=== PATIENT | female | born 1940 | race Caucasian/White ===

== ENCOUNTER 2017-04-20 02:01 | Inpatient (IN) ==
[2017-04-13 10:27] LABS: MANUAL DIFF NEEDED? NO
[2017-04-13 10:27] LABS: URINE MICRO REVIEW NEEDED? NO; URINE SOURCE CLEAN CATCH
[2017-04-13 11:41] LABS: BILIRUBIN URINE NEGATIVE (NEGATIVE); BLOOD URINE NEGATIVE (NEGATIVE); COLOR YELLOW; GLUCOSE URINE NEGATIVE (NEGATIVE); LEUKOCYTES URINE LARGE (NEGATIVE); NITRITE URINE NEGATIVE (NEGATIVE); PH URINE 5.5; PROTEIN URINE TRACE mg/dL (NEGATIVE); TURBIDITY URINE CLEAR (CLEAR); UR EPITHELIAL CELLS <10 /HPF (<10); URINE BACTERIA NEGATIVE /HPF; URINE RBC <10 /HPF (<10); URINE WBC TNTC /HPF (<10); UROBILINOGEN URINE NORMAL (NORMAL)
[2017-04-13 11:42] LABS: BASO% 1.1 % (0.0-0.8); EOS# 0.51 X1000 (0.0-0.7); EOS% 5.5 % (0.0-10.0); HEMATOCRIT 38.1 % (37.0-47.0); HEMOGLOBIN 12.7 g/dL (12.0-16.0); IMM GRAN# 0.03 X1000 (0.0-0.04); IMM GRAN% 0.3 % (0.0-0.5); LYMPH# 1.83 X1000 (1.2-3.4); LYMPH% 19.6 % (20.5-51.1); MCH 30.2 PG (27-31); MCHC 33.3 g/dL (33-37); MCV 90.7 FL (81-99); MONO# 0.73 X1000 (0.11-0.59); MONO% 7.8 % (1.7-9.3); MPV 10.6 FL (7.4-10.4); NEUT% 65.7 % (42.2-75.2); PLT 232 X1000 (130-400)
[2017-04-13 11:45] LABS: INR 1.04; PTT 22.6 Seconds (22.0-36.0)
[2017-04-13 12:07] LABS: CALCIUM 9.7 mg/dL (8.8-10.2); POTASSIUM 4.1 mmol/L (3.5-5.1)
--- NOTE | 2017-04-13 12:39 | EKG Report ---
Test Performed on : 04/13/2017 10:04:22 AM Test Reason : PAT Blood Pressure : / mmHG Vent. Rate : 086 BPM Atrial Rate : 086 BPM P-R Int : 140 ms QRS Dur : 064 ms QT Int : 342 ms P-R-T Axes : 042 044 055 degrees QTc Int : 409 ms Sinus rhythm. with premature supraventricular complexes. Otherwise normal ECG When compared with ECG of 10-JUN-2016 08:54, premature supraventricular complexes. are now present Confirmed by Apolinar Anderson MD ([id number]) on 04/13/2017 4:17:35 PM
[2017-04-20] MEDS ORDERED: PEPCID ONE (06:03)
[2017-04-20] MEDS ORDERED: REGLAN ONE (06:03)
[2017-04-20] MEDS ORDERED: COLACE ONE (06:03)
[2017-04-20] MEDS ORDERED: LYRICA ONE ×2 (06:03→06:05)
[2017-04-20] MEDS ORDERED: CELEBREX ONE (06:03)
[2017-04-20] MEDS ORDERED: LR 1,000 ML ONE (06:03)
[2017-04-20] MEDS ORDERED: KEFZOL 2 GM/D5W 2 GM/50 ML IVPB ONE (06:04)
[2017-04-20] MEDS ORDERED: MARCAINE 0.25% PF/EPI 1:200,000 ONE (06:24)
[2017-04-20] MEDS ORDERED: TORADOL ONE (06:24)
[2017-04-20] MEDS ORDERED: DURAMORPH ONE (06:24)
[2017-04-20] MEDS ORDERED: NEOSPORIN G.U. IRRIGANT ONE (06:25)
[2017-04-20] MEDS ORDERED: CYKLOKAPRON 1,000 MG/NS 1,000 MG/100 ML IVPB ONE (06:25)
[2017-04-20] MEDS ORDERED: EXPAREL 1.3% ONE (06:25)
[2017-04-20] MEDS ORDERED: SODIUM CHLORIDE 0.9% ONE (06:25)
[2017-04-20] MEDS ORDERED: XYLOCAINE-MPF 2% ONE (06:42)
[2017-04-20] MEDS ORDERED: QUELICIN (DOSE) ONE (06:48)
[2017-04-20] MEDS ORDERED: DIPRIVAN 1% ONE (06:49)
[2017-04-20] MEDS ORDERED: FENTANYL ONE (07:20)
[2017-04-20] MEDS ORDERED: EPHEDRINE ONE (07:48)
[2017-04-20 07:49] LABS: URINE MICRO REVIEW NEEDED? NO; URINE SOURCE CATH
[2017-04-20 07:53] LABS: BILIRUBIN URINE NEGATIVE (NEGATIVE); BLOOD URINE NEGATIVE (NEGATIVE); COLOR YELLOW; GLUCOSE URINE NEGATIVE (NEGATIVE); LEUKOCYTES URINE NEGATIVE (NEGATIVE); NITRITE URINE NEGATIVE (NEGATIVE); PH URINE 5.5; PROTEIN URINE 30 mg/dL (NEGATIVE); SP GRAVITY URINE 1.016; TURBIDITY URINE CLEAR (CLEAR); UR EPITHELIAL CELLS <10 /HPF (<10); URINE BACTERIA NEGATIVE /HPF; URINE RBC <10 /HPF (<10); URINE WBC <10 /HPF (<10); UROBILINOGEN URINE NORMAL (NORMAL)
[2017-04-20] MEDS ORDERED: ZEMURON ONE (08:14)
[2017-04-20] MEDS ORDERED: OFIRMEV 1000 MG/ISOTONIC SOLN 1,000 MG/100 ML BOTTLE ONE (08:36)
[2017-04-20] MEDS ORDERED: ZOFRAN ONE (08:36)
[2017-04-20] MEDS ORDERED: ZYLOPRIM PO SCH (09:00)
[2017-04-20] MEDS ORDERED: NEURONTIN PO SCH (09:00)
[2017-04-20] MEDS ORDERED: VANCOMYCIN ONE (09:08)
[2017-04-20] MEDS ORDERED: NS 1,000 ML ONE (10:03)
[2017-04-20] MEDS ORDERED: MORPHINE ONE ×2 (10:44→13:48)
--- NOTE | 2017-04-20 10:44 | Diag Imaging Result Doc PS360 ---
EXAM: SHOULDER 1 VIEW LEFT HISTORY: post Total shoulder TECHNIQUE: Single view COMPARISON: Chest from 07/04/2014 FINDINGS: The patient has undergone orthopedic replacement of the left shoulder since the prior exam. There is good positioning within the humeral shaft. Glenoid and humeral components are well positioned. No separation at the acromioclavicular joint. IMPRESSION: Orthopedically replaced left shoulder. Electronically signed by Kelton Barajas 04/20/2017 10:42 AM
[2017-04-20] MEDS: NS 1,000 ML IV SCH (11:32)
[2017-04-20] MEDS: ASPIRIN PO SCH (13:21)
[2017-04-20] MEDS: HUMULIN 70/30 SUBQ SCH ×2 (13:21→21:00)
[2017-04-20] MEDS: ALEVE PO SCH (13:21)
[2017-04-20] MEDS: OCUVITE LUTEIN & ZEAXANTHIN PO SCH (13:22)
[2017-04-20] MEDS: PRINIVIL PO SCH (13:22)
[2017-04-20] MEDS: ULTRAM PO SCH ×3 (13:22→16:55)
[2017-04-20] MEDS: TOPROL XL PO SCH (13:22)
[2017-04-20] MEDS: PROTONIX PO SCH ×2 (13:22→21:11)
[2017-04-20] MEDS ORDERED: CYKLOKAPRON 1,000 MG in NS 100 ML IV ONE (13:27)
[2017-04-20] MEDS ORDERED: ZOFRAN PO PRN (14:30)
[2017-04-20] MEDS ORDERED: MILK OF MAGNESIA PO PRN (14:30)
[2017-04-20] MEDS: KEFZOL 2 GM/D5W 2 GM/50 ML IVPB IV SCH ×2 (15:58→23:50)
--- NOTE | 2017-04-20 17:52 | OPERATIVE NOTE ---
PROCEDURE DATE: 04/20/2017 PREOPERATIVE DIAGNOSIS: Posttraumatic arthritis left glenohumeral joint. POSTOPERATIVE DIAGNOSIS: Posttraumatic arthritis left glenohumeral joint. PROCEDURE: Left reverse shoulder arthroplasty with DePuy Delta Xtend size 8, cemented stem, a 42+ 3 humeral cup, a 42 eccentric Glenosphere and a standard metaglene. SURGEON: Dr. Reggie Carroll 1ST SURVEYOR HYDROGRAPHIC: HARINI Kirk. 2ND SURVEYOR HYDROGRAPHIC: Gume Bustos RN. ANESTHESIA: General. IV FLUIDS: 1900 mL lactated Ringer's. ESTIMATED BLOOD LOSS: 200 mL. COMPLICATIONS: None. INDICATION: The patient is a pleasant 77-year-old female, who is status post fall a few years ago sustaining a left proximal humeral fracture. This was treated nonoperatively. She has continued with pain and comfort over the last few years and pains worsened. X-rays revealed evidence of a posttraumatic arthritis. A recommendation to proceed with left reverse shoulder arthroplasty was offered. Risks and benefits of surgery were explained, including the risks of anesthesia, , bleeding, infection, failure to relieve pain, postop stiffness, nerve injury, blood clots, and other imponderables. All questions were answered. The patient and family wished to proceed with surgery. DETAILS OF OPERATION: The patient was taken to the operating room and placed supinely on the operating table. Once adequate anesthesia was obtained, patient's was placed in semi-Emmanuel beach- chair position. The left shoulder was subsequently prepped and draped in usual sterile fashion. A standard deltopectoral incision made with a skin knife. Medial and skin envelopes were developed. Hemostasis was obtained using electrocautery. The deltopectoral interval was then developed. Retractors were then placed. After this had been performed, wrist retractors placed. The clavipectoral fascia was then elevated. Attention was then turned to the subscapularis tendon. This was then elevated and incised longitudinally and retracted. The patient did have a deformity to the head secondary to the previous proximal humeral fracture. The remaining portion of the posterior rotator cuff was released. Attention was then turned to the proximal humerus where a starting reamer was passed. Intramedullary reaming was then conducted up to a size 8. A size 8 guide stem with a proximal humeral cutting block was pinned in position. The proximal humerus was then resected. After this had been performed, a protective disk was placed. Attention was then turned to the glenoid where circumferential dissection was performed with a deep knife. A guide pin was then placed and proper positioning determined with the guide. Reaming was then conducted. The central hole was then dilated. The wound was copiously irrigated with antibiotic pulsatile lavage. A standard metaglene was then impacted in position. Three locking screws and 1 nonlocking screw were placed. The wound was copiously irrigated once again. It appeared to have good fixation. The wound was copiously irrigated once again with antibiotic pulsatile lavage. A 42 eccentric Glenosphere was then placed with the eccentricity placed inferiorly. Attention turned to the proximal humerus where intramedullary guide for the proximal reaming was then conducted. After this had been performed, a trial humeral stem with a cup was then impacted and trial reduction was obtained. Trial cup and the stem was then removed. Copious irrigation was then performed with antibiotic pulsatile lavage into the intramedullary canal. Vancomycin was mixed with cement on the back table. After this had been performed, cement was then impacted into the intramedullary canal of the proximal humerus. A size 8 Delta Xtend cemented stem was then impacted in position and 10 degrees of retroversion. Excess cement was removed with a Townsend. After cement had cured, trial cup size then placed to 42, +3 and had excellent stability. The trial cup was removed. The wound was copiously once again. A 42+ 3 humeral cup was then placed. The shoulder was reduced, carried through range of motion and had good range of motion and good stability. Exparel was placed in deep soft tissue, as well as subcutaneous tissue. The wound was copiously irrigated once again with antibiotic pulsatile lavage. 2-0 Vicryl was used to repair the subcutaneous tissue and skin franklin. Adaptic, sterile 4 x 4, ABD pad, and tape were applied to the left upper extremity, followed by a shoulder immobilizer. All counts were correct. Patient tolerated the procedure well/ she was transferred to the recovery room in stable condition. cc: Reggie Carroll MD
[2017-04-20] MEDS ORDERED: COLACE PO SCH (21:00)
[2017-04-20] MEDS: PERIDEX MT SCH (21:11)
[2017-04-20] MEDS: NEURONTIN PO SCH (21:11)
[2017-04-20] MEDS: NORCO-10 PO PRN (21:12)
[2017-04-20] MEDS: ZOCOR PO SCH (21:12)
[2017-04-20] MEDS: ZYLOPRIM PO SCH (21:12)
[2017-04-20] MEDS: MORPHINE IV PRN (23:47)
[2017-04-21] MEDS: NORCO-10 PO PRN ×4 (02:11→21:18)
[2017-04-21 05:51] LABS: HEMATOCRIT 31.4 % (37.0-47.0); HEMOGLOBIN 10.2 g/dL (12.0-16.0)
[2017-04-21 06:04] LABS: CALCIUM 8.3 mg/dL (8.8-10.2)
--- NOTE | 2017-04-21 07:00 | PROGRESS NOTE ---
DATE: 04/21/2017 SUBJECTIVE: Patient is a pleasant 77-year-old female who postoperative day #1 status post left reverse total shoulder arthroplasty. She is currently sitting in the chair and resting comfortably. PHYSICAL EXAM: Patient's dressing is intact. She has good manager supply chain planning strength. She is neurovascularly intact distally. Able flex her fingers. LABORATORY DATA: Her hemoglobin is 10.2, hematocrit is 31.4. IMPRESSION: Postoperative day #1, status post left reverse total shoulder arthroplasty. PLAN: At this point, we will change her dressing, discontinue her drain, and Hep-Lock her IV. We will also proceed with physical therapy with passive range of motion of the left shoulder. It was felt the patient benefit from inpatient rehabilitation. We will consult Break Out Man for discharge planning. cc: Reggie Carroll MD
[2017-04-21] MEDS: TOPROL XL PO SCH (08:20)
[2017-04-21] MEDS: PROTONIX PO SCH ×2 (08:20→21:17)
[2017-04-21] MEDS: ASPIRIN PO SCH (08:20)
[2017-04-21] MEDS: ALEVE PO SCH (08:21)
[2017-04-21] MEDS: ULTRAM PO SCH ×3 (08:21→17:32)
[2017-04-21] MEDS: PRINIVIL PO SCH (08:21)
[2017-04-21] MEDS: OCUVITE LUTEIN & ZEAXANTHIN PO SCH (08:21)
[2017-04-21] MEDS: PERIDEX MT SCH ×2 (08:22→21:19)
[2017-04-21] MEDS ORDERED: INSULIN PEN NEEDLES ONE (09:11)
[2017-04-21] MEDS: HUMULIN 70/30 SUBQ SCH ×2 (09:20→21:19)
[2017-04-21] MEDS: NS 1,000 ML IV SCH (14:09)
[2017-04-21] MEDS: ZOCOR PO SCH (21:18)
[2017-04-21] MEDS: NEURONTIN PO SCH (21:18)
[2017-04-21] MEDS: ZYLOPRIM PO SCH (21:18)
[2017-04-22] MEDS: NORCO-10 PO PRN ×4 (02:23→21:16)
[2017-04-22] MEDS: MORPHINE IV PRN (03:29)
[2017-04-22 05:38] LABS: HEMATOCRIT 29.9 % (37.0-47.0); HEMOGLOBIN 9.8 g/dL (12.0-16.0)
--- NOTE | 2017-04-22 06:40 | PROGRESS NOTE ---
DATE: 04/22/2017 SUBJECTIVE: Patient is a pleasant 77-year-old female who is 2 days status post left reversal total shoulder arthroplasty. The patient did experience some expected discomfort through the night. OBJECTIVE: On physical exam, patient's left upper extremity wound looks good. There are no signs or symptoms of infection. She has expected swelling. She is able to flex down her fingers. She is neurovascularly intact distally. LABORATORY DATA: Her hemoglobin is 9.8 and hematocrit is 29.9. IMPRESSION: 1. Postoperative day #2, status post left reverse total shoulder arthroplasty. 2. Acute blood loss anemia. PLAN: At this point, the patient will continue progressing with physical therapy. She is asymptomatic for acute blood loss anemia. Astronaut Mission Specialist has been consulted. We will plan on discharging to rehab tomorrow. cc: Reggie Carroll MD
--- NOTE | 2017-04-22 07:01 | DISCHARGE SUMMARY ---
ADMISSION DATE: 04/20/2017 DISCHARGE DATE: 04/23/2017 ADMITTING DIAGNOSIS: Posttraumatic arthritis, left glenohumeral joint. POSTOPERATIVE DIAGNOSIS: Posttraumatic arthritis, left glenohumeral joint. PROCEDURE: 1. Left reverse total shoulder arthroplasty. 2. Acute blood loss anemia. BRIEF HISTORY: The patient is a pleasant 77-year-old female, who is status post fall a few years ago, sustaining a left proximal humeral fracture. She was treated nonoperatively. The patient has continued with pain and worsening discomfort over last few years. X-rays revealed degenerative changes and some posttraumatic arthritis. Given the patient's findings, recommendation to proceed with left reverse total shoulder arthroplasty was offered. Risks and benefits of surgery were explained. All questions were answered. The patient's family wished to proceed with surgery. HOSPITAL COURSE AND TREATMENT: The patient was admitted to the hospital and underwent left reverse total shoulder arthroplasty. She tolerated the procedure well. She had an uneventful postoperative course. By postoperative day #2, her hemoglobin and hematocrit stabilized to 9.8 and 29.9, and she was asymptomatic. It was felt the patient would benefit from inpatient rehabilitation. She was agreeable to this. Prior to discharge, the patient is afebrile, tolerating a regular diet. The wound looked good. There were no signs or symptoms of infection. She was progressing with physical therapy. DISCHARGE MEDICATIONS: 1. [place] 10 mg 1-2 p.o. q.4 hours p.r.n. pain. 2. For remaining medications, please see medication list. DISCHARGE INSTRUCTIONS: 1. Patient will be discharged from inpatient rehabilitation. 2. Consult Physical Therapy for gait training and passive range of motion exercises of the left shoulder, as well as pendulum exercises and active and passive range of motion of the left elbow, wrist, and fingers. 3. Discontinue sutures in 10 days. 4. Follow up in the office in 3 weeks. cc: Reggie Carroll MD
[2017-04-22] MEDS: ULTRAM PO SCH ×3 (09:03→18:07)
[2017-04-22] MEDS: PROTONIX PO SCH ×2 (09:10→21:17)
[2017-04-22] MEDS: PRINIVIL PO SCH ×2 (09:10→09:13)
[2017-04-22] MEDS: ALEVE PO SCH (09:10)
[2017-04-22] MEDS: OCUVITE LUTEIN & ZEAXANTHIN PO SCH (09:10)
[2017-04-22] MEDS: ASPIRIN PO SCH (09:10)
[2017-04-22] MEDS: TOPROL XL PO SCH ×2 (09:10→09:14)
[2017-04-22] MEDS: PERIDEX MT SCH ×2 (09:10→21:17)
[2017-04-22] MEDS: HUMULIN 70/30 SUBQ SCH ×2 (09:11→21:18)
[2017-04-22] MEDS: NEURONTIN PO SCH (21:17)
[2017-04-22] MEDS: ZOCOR PO SCH (21:17)
[2017-04-22] MEDS: ZYLOPRIM PO SCH (21:17)
[2017-04-23 05:32] LABS: HEMATOCRIT 29.4 % (37.0-47.0); HEMOGLOBIN 9.5 g/dL (12.0-16.0)
[2017-04-23] MEDS: PERIDEX MT SCH (09:12)
[2017-04-23] MEDS: ASPIRIN PO SCH (09:12)
[2017-04-23] MEDS: TOPROL XL PO SCH (09:12)
[2017-04-23] MEDS: PROTONIX PO SCH (09:12)
[2017-04-23] MEDS: ALEVE PO SCH (09:12)
[2017-04-23] MEDS: ULTRAM PO SCH (09:13)
[2017-04-23] MEDS: HUMULIN 70/30 SUBQ SCH (09:13)
[2017-04-23] MEDS: OCUVITE LUTEIN & ZEAXANTHIN PO SCH (09:14)
[2017-04-23] MEDS: PRINIVIL PO SCH (09:14)
[2017-04-23 11:34] VITALS: BP 108/76
== END 2017-04-23 12:09 ==
LOC: SURHOLD 02:01 → 4N 07:28
PROVIDERS: ADMIT Orthopaedic Surgery Adult Reconstructive Orthopaedic Surgery; ATTEND Orthopaedic Surgery Adult Reconstructive Orthopaedic Surgery

== ENCOUNTER 2019-01-31 09:42 | Inpatient (IN) ==
--- NOTE | 2019-01-23 10:42 | EKG Report ---
Test Performed on : 01/23/2019 10:23:13 AM Test Reason : PAT Blood Pressure : / mmHG Vent. Rate : 072 BPM Atrial Rate : 072 BPM P-R Int : 114 ms QRS Dur : 070 ms QT Int : 360 ms P-R-T Axes : 037 019 050 degrees QTc Int : 394 ms Normal sinus rhythm. Nonspecific ST abnormality Abnormal ECG When compared with ECG of 13-APR-2017 10:04, premature supraventricular complexes. are no longer present Confirmed by Dominik HERNANDEZ, Loc Mclaughlin ([id number]) on 01/24/2019 8:20:52 AM
[2019-01-23 11:19] LABS: URINE SOURCE CLEAN CATCH
[2019-01-23 11:37] LABS: BASO# 0.08 X1000 (0.0-0.2); BASO% 0.8 % (0.0-0.8); EOS# 0.17 X1000 (0.0-0.7); EOS% 1.8 % (0.0-10.0); HEMATOCRIT 41.9 % (37.0-47.0); HEMOGLOBIN 14.5 g/dL (12.0-16.0); IMM GRAN# 0.02 X1000 (0.0-0.04); IMM GRAN% 0.2 % (0.0-0.5); LYMPH# 1.81 X1000 (1.2-3.4); MCH 31.7 PG (27-31); MCHC 34.6 g/dL (33-37); MCV 91.7 FL (81-99); MONO# 0.71 X1000 (0.11-0.59); MONO% 7.4 % (1.7-9.3); MPV 9.4 FL (7.4-10.4); NEUT# 6.76 X1000 (1.4-6.5); NEUT% 70.8 % (42.2-75.2); PLT 214 X1000 (130-400); RBC 4.57 XMIL (4.2-5.4); WBC 9.55 X1000 (4.8-10.8)
[2019-01-23 11:39] LABS: BILIRUBIN URINE NEGATIVE (NEGATIVE); BLOOD URINE SMALL (NEGATIVE); COLOR YELLOW; GLUCOSE URINE NEGATIVE (NEGATIVE); KETONE URINE NEGATIVE (NEGATIVE); LEUKOCYTES URINE LARGE (NEGATIVE); NITRITE URINE POSITIVE (NEGATIVE); PH URINE 5.5; PROTEIN URINE 50 mg/dL (NEGATIVE); TURBIDITY URINE HAZY (CLEAR); UROBILINOGEN URINE NORMAL (NORMAL)
[2019-01-23 11:40] LABS: UR EPITHELIAL CELLS <10 /HPF (<10); URINE BACTERIA 4+ /HPF; URINE RBC <10 /HPF (<10); URINE WBC TNTC /HPF (<10)
[2019-01-23 11:43] LABS: INR 0.98; PROTIME 13.8 Seconds (11.0-16.0)
[2019-01-23 12:05] LABS: CALCIUM 10.2 mg/dL (8.8-10.2); CREATININE 1.1 mg/dL (0.5-0.9); POTASSIUM 4.8 mmol/L (3.5-5.1)
[2019-01-31] MEDS ORDERED: COLACE ONE (10:34)
[2019-01-31] MEDS ORDERED: KEFZOL 1 GM/D5W 2 GM/100 ML IVPB ONE (10:35)
[2019-01-31] MEDS ORDERED: LYRICA ONE (10:35)
[2019-01-31] MEDS ORDERED: LR 1,000 ML ONE (10:35)
[2019-01-31] MEDS ORDERED: CELEBREX ONE (10:35)
[2019-01-31] MEDS ORDERED: REGLAN ONE (10:35)
[2019-01-31] MEDS ORDERED: PEPCID ONE (10:35)
[2019-01-31] MEDS ORDERED: VANCOMYCIN ONE (13:17)
[2019-01-31] MEDS ORDERED: NEOSPORIN G.U. IRRIGANT ONE (13:17)
[2019-01-31] MEDS ORDERED: EXPAREL 1.3% ONE (13:17)
[2019-01-31] MEDS ORDERED: SODIUM CHLORIDE 0.9% ONE (13:17)
[2019-01-31] MEDS ORDERED: TORADOL ONE (13:17)
[2019-01-31] MEDS ORDERED: DURAMORPH ONE (13:17)
[2019-01-31] MEDS ORDERED: MARCAINE 0.25% PF ONE (13:25)
[2019-01-31] MEDS ORDERED: CYKLOKAPRON 1,000 MG/NS 1,000 MG/100 ML IVPB ONE ×2 (13:25)
[2019-01-31] MEDS ORDERED: ZOFRAN ONE (13:40)
[2019-01-31] MEDS ORDERED: ROBINUL ONE (13:40)
[2019-01-31] MEDS ORDERED: DECADRON ONE ×2 (13:40→13:49)
[2019-01-31] MEDS ORDERED: XYLOCAINE-MPF 2% ONE (13:40)
[2019-01-31] MEDS ORDERED: FENTANYL ONE (13:41)
[2019-01-31] MEDS ORDERED: DIPRIVAN 1% ONE ×2 (13:41→16:24)
[2019-01-31] MEDS ORDERED: OFIRMEV 1000 MG/ISOTONIC SOLN 1,000 MG/100 ML BOTTLE ONE (13:47)
[2019-01-31 15:02] LABS: URINE SOURCE CATH
[2019-01-31 15:05] LABS: BILIRUBIN URINE NEGATIVE (NEGATIVE); BLOOD URINE TRACE (NEGATIVE); COLOR YELLOW; GLUCOSE URINE NEGATIVE (NEGATIVE); KETONE URINE NEGATIVE (NEGATIVE); LEUKOCYTES URINE LARGE (NEGATIVE); NITRITE URINE NEGATIVE (NEGATIVE); PH URINE 5.5; PROTEIN URINE 50 mg/dL (NEGATIVE); SP GRAVITY URINE 1.001; TURBIDITY URINE HAZY (CLEAR); UR EPITHELIAL CELLS <10 /HPF (<10); URINE BACTERIA 4+ /HPF; URINE RBC <10 /HPF (<10); URINE WBC TNTC /HPF (<10); UROBILINOGEN URINE NORMAL (NORMAL)
[2019-01-31] MEDS ORDERED: NS 1,000 ML ONE (17:19)
--- NOTE | 2019-01-31 17:56 | Diag Imaging Result Doc PS360 ---
EXAM: KNEE 1-2 VIEWS-RIGHT - 01/31/2019 HISTORY: right TKA TECHNIQUE: AP and lateral right knee four views COMPARISON: 12/03/2018 FINDINGS: There is been interval placement of a new right total knee prosthesis. Alignment appears to be satisfactory. There is mild deformity of the medial cortical margin of the distal most shaft of the right femur. This may be long-standing such as from old injury, although acute fracture cannot be entirely excluded. There are no other complications identified. IMPRESSION: Right total knee prosthesis in satisfactory alignment. Mild deformity of the medial cortical margin of distal most shaft of right femur. This may be long-standing, such as from old injury. Correlation with clinical evaluation is recommended. Electronically signed by Bridger Ortiz 01/31/2019 5:53 PM
[2019-01-31] MEDS ORDERED: MORPHINE IV PRN ×3 (18:30)
[2019-01-31] MEDS ORDERED: ZOFRAN PO PRN (18:30)
[2019-01-31] MEDS: NS 1,000 ML IV SCH (18:46)
--- NOTE | 2019-01-31 19:57 | OPERATIVE NOTE ---
PROCEDURE DATE: 01/31/2019 PREOPERATIVE DIAGNOSIS: Failed right total knee arthroplasty. POSTOPERATIVE DIAGNOSIS: Failed right total knee arthroplasty. PROCEDURE: Revision of right total knee arthroplasty with DePuy Sigma, size 2.5 femur with a 31 mm universal femoral sleeve, a 75 x 12 universal fluted stem, and a size 2 tibial tray with a 29 mm metaphyseal sleeve, and a 75 x 10 mm universal fluted stem, and a size 15 mm rotating platform tibial insert. SURGEON: Reggie Carroll MD. ENVIRONMENTAL JOURNALIST: RAINER Wray. SECOND INVENTORY ADMINISTRATOR: Gume Bustos RN. ANESTHESIA: Spinal. IV FLUIDS: 800 mL lactated Ringer's. ESTIMATED BLOOD LOSS: 275 mL. TOURNIQUET TIME: 2 hours at 300 mmHg. DRAINS: One Hemovac drain was placed; was not sewn in. COMPLICATIONS: Stable intraoperative distal femur fracture. INDICATION: The patient is a pleasant 78-year-old female who is status post right total knee arthroplasty approximately 10 or 12 years ago. Patient has had worsening pain and discomfort in the last year or so, and x-rays revealed loosening of the femoral component. She underwent preoperative evaluation and was negative for infection. Given the patient's findings, recommendation to proceed with revision arthroplasty was offered. Risks and benefits of surgery were explained, including the risks of anesthesia, , bleeding, infection, failure to relieve pain, postoperative stiffness, nerve injury, blood clots, and other imponderables. All questions were answered. Patient and family wished to proceed with surgery. DETAILS OF OPERATION: The patient was taken to the operating room and placed supine on the operating table. Once adequate anesthesia was obtained, the patient's right lower extremity was subsequently prepped and draped in the usual sterile fashion. Esmarch was used to exsanguinate the right lower extremity. Tourniquet was inflated to 300 mmHg. A standard anterior incision was made through the previous surgical incision. Medial and lateral skin envelopes were developed. Standard medial parapatellar arthrotomy was then performed. Retractors were then placed. Inspection of the femoral component revealed gross loosening and was easily removed. The tibial insert was then removed. An osteotome was used to remove the tibial component. Patient was noted to have significant fragile bone and had some bone loss in the posterior aspect of the proximal tibia with removal of the tibial component. After adequate removal had been conducted, the cement plug from the intramedullary canal was removed. After this had been performed, a starting reamer was then passed in the tibia as well as the distal femur. It had good purchase with a 10 mm on the tibial side, and it reamed up to 12 mm on the femoral side. After that was performed, over- reaming was conducted proximally on the tibia and distal femur. Broaching was then performed to 29 mm on the tibial side and had good fit. It was countersunk and resected. This was then removed. A 2 mm with a 75 x 29 mm capsule sleeve, and a 75 x 10 mm stem was then impacted on the tibial side. It appeared to be a good fit. Attention was then turned to the distal femur where it was again over-reamed. Broaching was then conducted up to size 31 mm. The patient was noted to have a split and stable fracture of the femoral component in the posterior aspect at this point. After this had been performed, the intramedullary guide was then placed in position in the distal femur. The broach remained in position. The stem was then placed on the broach. A distal femoral cutting block was then pinned in position. Distal femoral cut was then performed. Given the patient's significant bone loss in the lateral femoral condyle, I was unable to obtain any resection. A standard resection was performed on the medial side. After this was performed, a chamfer cutting block was pinned in position and was determined along the epicondylar access, and also rotation was set with the knee in 90 degrees of flexion with a spacer block. It was pinned in position. Anterior, posterior, and chamfer cuts were then made. A box cutting guide was then placed. The femoral construct was then constructed. Patient was noted to have propagation of the fracture more proximally; however, after the trialing components, it was deemed to be stable. C- arm visualization was used to confirm there was no further propagation proximally. The stem was extended proximally to the most proximal portion of the metaphyseal sleeve, and had the stem well above the superior portion of the fracture. The knee was carried through a range of motion and there appeared to be stable fracture. After this was performed,components were then removed. Copious irrigation was performed with antibiotic pulsatile lavage while the vancomycin was mixed with cement on the back table. The components were assembled on the back table. Attention was then turned to the proximal tibia where cement was placed on the superior aspect of the tibia. This was followed by the tibial component construct and impacted in position. After this had been performed, cement was placed on the distal portion of the femur and the femoral construct was impacted in position. The trial tibial component was then placed in full extension. Axial loading was maintained while cement cured. The fracture site was palpated. After cement had cured, the knee was then carried through gentle range of motion. The patient had significant tightness along the quadriceps and had flexion to approximately 95 to 100 degrees. This appeared to be stable with a 15 mm. With range of motion, the fracture was stable. The trial tibial insert was then removed. Exparel had been placed in the deep soft tissue, as well as the subcutaneous tissue while cement was curing. While exchanging the tibial insert, Exparel was placed in the deep posterior capsule. The wound was copiously irrigated with antibiotic pulsatile lavage. A size 15 mm rotating platform tibial insert was then placed using good range of motion, and had good stability and range of motion, stable fracture. The patient had a small stable split in the most proximal aspect of the tibia anteriorly. A 1/8 Hemovac drain was placed and was not sewn in. Copious irrigation was then performed once again with antibiotic pulsatile lavage. A #1 Vicryl suture was used to repair the arthrotomy followed by 2-0 Vicryl to repair the subcutaneous tissue and skin franklin. Adaptic, sterile 4 x 4's, Webril, cryo unit, Cale wrap were applied to the right lower extremity. Patient tolerated this procedure well and transferred to the recovery room in stable condition. cc: Reggie Carroll MD MTDD
[2019-01-31] MEDS: NORCO-10 PO PRN (22:00)
[2019-01-31] MEDS: KEFZOL 1 GM/D5W 1 GM/50 ML IVPB IV SCH (22:00)
[2019-02-01] MEDS: NORCO-10 PO PRN (01:49)
[2019-02-01] MEDS: KEFZOL 1 GM/D5W 1 GM/50 ML IVPB IV SCH (06:03)
[2019-02-01] MEDS: XARELTO PO SCH (06:05)
[2019-02-01 06:13] LABS: HEMATOCRIT 36.2 % (37.0-47.0); HEMOGLOBIN 12.4 g/dL (12.0-16.0)
[2019-02-01 06:27] LABS: CALCIUM 8.7 mg/dL (8.8-10.2); CREATININE 1.2 mg/dL (0.5-0.9); POTASSIUM 4.8 mmol/L (3.5-5.1)
[2019-02-01] MEDS ORDERED: INSULIN PEN NEEDLES ONE (08:55)
[2019-02-01] MEDS ORDERED: ZYLOPRIM PO SCH (09:00)
--- NOTE | 2019-02-01 11:33 | ORTHOPAEDICS PROGRESS NOTE ---
DATE: 02/01/2019 SUBJECTIVE: The patient is a 78-year-old female who is 1 day status post revision right total knee arthroplasty. She is currently resting comfortably. The patient was noted to have a stable distal femur fracture intraoperatively. She states that the Hollister 10 mg seems to make her somewhat hyper, and is requesting to decrease to Hollister 7.5 mg. PHYSICAL EXAMINATION: The patient's right lower extremity with dressing is intact. Calf is soft. She has active dorsiflexion and plantar flexion. LABORATORY DATA: Her hemoglobin is 12.4, hematocrit 36.2. IMPRESSION: Postoperative day #1, status post revision right total knee arthroplasty with stable intraoperative distal femur fracture. PLAN: At this point, will maintain the patient on nonweightbearing right lower extremity. Will begin mobilization. Will consult New Media Strategist for discharge planning for inpatient rehabilitation. cc: Reggie Carroll MD
[2019-02-01] MEDS: HUMULIN 70/30 SUBQ SCH (11:48)
[2019-02-01] MEDS: OCUVITE LUTEIN & ZEAXANTHIN PO SCH (11:49)
[2019-02-01] MEDS: COLACE PO SCH ×2 (11:49→23:58)
[2019-02-01] MEDS: TOPROL XL PO SCH (11:49)
[2019-02-01] MEDS: PRINIVIL PO SCH (11:49)
[2019-02-01] MEDS: PEPCID PO SCH ×3 (11:50→23:57)
[2019-02-01] MEDS: PERIDEX MT SCH ×2 (11:50→23:57)
[2019-02-01] MEDS: ULTRAM PO SCH ×3 (11:50→18:49)
[2019-02-01] MEDS: NEURONTIN PO SCH (11:51)
--- NOTE | 2019-02-01 13:53 | Diag Imaging Result Doc PS360 ---
EXAM: CHEST-1 VIEW INDICATION: REHAB TECHNIQUE: One view COMPARISON: 01/11/2018 FINDINGS: The lungs are grossly clear. There is no discrete pleural fluid collection or pneumothorax. The cardiomediastinal silhouette and central vasculature are grossly unremarkable. IMPRESSION: No evidence of acute pathology by plain radiograph. Electronically signed by Rolando Rashid 02/01/2019 1:51 PM
[2019-02-01] MEDS: NORCO-7.5 PO PRN ×3 (13:57→23:56)
[2019-02-01] MEDS: NS 1,000 ML IV SCH (16:11)
[2019-02-01] MEDS ORDERED: HUMULIN 70/30 SUBQ SCH (21:00)
[2019-02-01] MEDS ORDERED: ZOCOR PO SCH (21:00)
[2019-02-02] MEDS: ULTRAM PO SCH ×3 (02:21→15:43)
[2019-02-02] MEDS: XARELTO PO SCH (06:11)
[2019-02-02 06:31] LABS: HEMOGLOBIN 11.9 g/dL (12.0-16.0)
[2019-02-02] MEDS ORDERED: PEPCID PO SCH (09:00)
[2019-02-02] MEDS ORDERED: SEPTRA DS PO SCH (09:00)
[2019-02-02] MEDS: PERIDEX MT SCH (10:20)
[2019-02-02] MEDS: PRINIVIL PO SCH (10:21)
[2019-02-02] MEDS: COLACE PO SCH (10:21)
[2019-02-02] MEDS: OCUVITE LUTEIN & ZEAXANTHIN PO SCH (10:21)
[2019-02-02] MEDS: TOPROL XL PO SCH (10:21)
[2019-02-02] MEDS: HUMULIN 70/30 SUBQ SCH (10:26)
--- NOTE | 2019-02-02 11:01 | ORTHOPAEDICS PROGRESS NOTE ---
DATE: 03/05/2019 SUBJECTIVE: Patient is a 79-year-old female who was one day status post revision right total knee arthroplasty and sustained a stable distal femoral fracture. She is currently sitting in a chair resting comfortably. OBJECTIVE: The patient's vital signs are stable. She has her right lower extremity wound looks good. There is no signs or symptoms of infection. Calf is soft. She has active dorsiflexion and plantar flexion. She is able to perform a straight leg raise. IMPRESSION: 1. Postoperative day #1 status post revision right total knee arthroplasty with stable distal femur fracture. 2. Urinary tract infection on admission. PLAN: At this point, will maintain the patient on nonweightbearing right lower extremity. Discharge planning for inpatient rehabilitation and we anticipate discharge tomorrow if bed is available. Patient's microbiology on the initial urine obtained the morning of her admission is growing gram-negative rods. We will place her on antibiotic for coverage. cc: Reggie Carroll MD
--- NOTE | 2019-02-02 11:05 | DISCHARGE SUMMARY ---
ADMISSION DATE: 01/31/2019 DISCHARGE DATE: 02/02/2019 ADMITTING DIAGNOSES: 1. Failed right total knee arthroplasty. 2. Urinary tract infection. DISCHARGE DIAGNOSES: 1. Failed right total knee arthroplasty. 2. Urinary tract infection 3. Status post revision right total knee arthroplasty with a stable distal femoral fracture. BRIEF HISTORY: The patient is a pleasant 79-year-old female who has had a chronic history who is status post right total knee arthroplasty in 2007. The patient has developed increased discomfort last year or so and has worsened. X-rays revealed evidence of loosening of the femoral component. Underwent preop evaluation, was negative for infection. Recommendation to proceed with revision arthroplasty with revision right total knee arthroplasty. Risks and benefits of surgery explained including the risks of anesthesia, , bleeding, infection, failure to relieve pain, Postoperative stiffness, nerve injury, blood clots, and other imponderables. All questions were answered. The patient wished to proceed with surgery. HOSPITAL COURSE AND TREATMENT: Patient admitted to the hospital and underwent revision right total knee arthroplasty. Patient tolerated the procedure well. Patient was noted to have some fragile osteoporotic bone and did sustain a stable distal femoral, which was noted intraoperatively. She had an uneventful postoperative course. By postoperative day #2, her hemoglobin was 11.9, hematocrit is 35.0. The patient was placed on restrictive weightbearing for a distal femoral fracture and was slow to mobilize and slow to mobilize with physical therapy. Patient had a urine culture which was obtained on her admission which did reveal E. coli which is sensitive to Bactrim and will be Bactrim for 10 days. It was felt she would benefit from inpatient rehabilitation. Prior to discharge, the patient is afebrile, tolerating a regular diet. Wound looked good. There are no signs or symptoms of infection. Her pain was well controlled with p.o. medication. DISCHARGE MEDICATIONS: 1. [place] 7.5 mg 1 p.o. daily 2 6 hours p.r.n. pain. 2. For remaining medications, please see medication list. Times. 3. Xarelto 10 mg 1 p.o. daily p.o.. 4. For remaining medications, see please see medication list. DISCHARGE INSTRUCTIONS: 1. Patient will be discharged for inpatient rehabilitation. 2. Consult Physical Therapy. 3. The patient will be nonweightbearing right lower extremity. 4. Discontinue franklin some 10 days. 5. Follow up in the office in 3 weeks. Eris#: [id number] cc: Reggie Carroll MD MTDD
[2019-02-02 11:46] VITALS: BP 149/57
[2019-02-02] MEDS: NEURONTIN PO SCH (12:09)
[2019-02-02] MEDS ORDERED: ZYLOPRIM PO SCH (21:00)
== END 2019-02-02 15:45 | DRG 467 ==
LOC: 4N 09:42 → PAT 09:42
PROVIDERS: ADMIT Orthopaedic Surgery Adult Reconstructive Orthopaedic Surgery; ATTEND Orthopaedic Surgery Adult Reconstructive Orthopaedic Surgery
CPT/HCPCS: 71010; 71045; 73560; 76000; 80048; 81001; 82948; 85014; 85018; 85025; 85610; 85730; 86850; 86900; 86901; 87070; 87075; 87077; 87088; 87186; 87205; 93005; 93010; 94761; 94799; 97110; 97162; 97530; A9270; C9290; J0131; J0690; J1100; J1885; J2270; J2274; J2275; J2405; J3010; J3370; J7030; J7120; Q9974; S0020; XXXXX

== ENCOUNTER 2019-02-28 11:11 | Observation (INO) ==
[2019-02-28] MEDS ORDERED: REGLAN ONE (11:51)
[2019-02-28] MEDS ORDERED: KEFZOL 1 GM/D5W 2 GM/100 ML IVPB ONE (11:51)
[2019-02-28] MEDS ORDERED: LR 1,000 ML ONE (11:51)
[2019-02-28] MEDS ORDERED: PEPCID ONE (11:51)
[2019-02-28] MEDS ORDERED: DIPRIVAN 1% ONE (12:57)
[2019-02-28] MEDS ORDERED: MORPHINE ONE (12:58)
[2019-02-28] MEDS ORDERED: SODIUM CHLORIDE 0.9% 10 ML ONE ×2 (12:59→15:58)
[2019-02-28] MEDS ORDERED: XYLOCAINE-MPF 2% ONE (12:59)
[2019-02-28] MEDS ORDERED: EPHEDRINE ONE (13:31)
[2019-02-28] MEDS ORDERED: ZOFRAN ONE (13:47)
[2019-02-28] MEDS: DILAUDID ONE ×4 (15:11→15:26)
[2019-02-28] MEDS ORDERED: NS 1,000 ML ONE (15:41)
[2019-02-28] MEDS ORDERED: NORCO-7.5 ONE (15:53)
[2019-02-28] MEDS ORDERED: TORADOL ONE (15:58)
[2019-02-28] MEDS ORDERED: PHENERGAN ONE (15:58)
[2019-02-28] MEDS ORDERED: ZOFRAN IV PRN (17:05)
[2019-02-28] MEDS ORDERED: MILK OF MAGNESIA PO PRN (17:05)
[2019-02-28] MEDS ORDERED: MORPHINE IV PRN (17:05)
[2019-02-28] MEDS ORDERED: HALDOL IV PRN (17:15)
[2019-02-28] MEDS: NS 1,000 ML IV SCH (17:44)
[2019-02-28] MEDS ORDERED: ULTRAM PO PRN (17:57)
--- NOTE | 2019-02-28 18:13 | OPERATIVE NOTE ---
PROCEDURE DATE: 02/28/2019 POSTOPERATIVE DIAGNOSIS: Right patella tendon avulsion status post revision total knee arthroplasty. POSTOPERATIVE DIAGNOSIS: Right patella tendon avulsion status post revision total knee arthroplasty. PROCEDURE: Repair of right patella tendon. SURGEON: Reggie Carroll MD. UNION LABORER: RAINER Santo. SECOND CORPORATE COMPLIANCE DIRECTOR: Gume Bustos RN. ANESTHESIA: General. IV FLUIDS: 700 mL lactated Ringer's. ESTIMATED BLOOD LOSS: 20 mL. TOURNIQUET TIME: 65 minutes at 300 mmHg. COMPLICATIONS: None. INDICATION: The patient is a pleasant, 79-year-old female who is status post revision right total knee arthroplasty approximately 5 weeks ago. Approximately 2 weeks status post revision arthroplasty the patient sustained a fall. She felt pain, discomfort, and increased swelling. Upon follow-up visit, patient's swelling was much improved and the patient was unable to fully extend her knee, lacked approximately 40 to 45 degrees of extension, and has had findings consistent with patella tendon. Given patient's findings, recommendation to proceed with repair of right patella tendon was offered. Risks and benefits of surgery were explained, including the risks of anesthesia, , bleeding, infection, failure to relieve pain, postoperative stiffness, nerve injury, blood clots, and other imponderables. All questions answered and patient and family wished to proceed with surgery. DETAILS OF OPERATION: The patient was taken to the operating room and placed supine on the operating table. Once adequate anesthesia was obtained, patient's right lower extremity was subsequently prepped and draped in usual sterile fashion. An Esmarch was used to exsanguinate the right lower extremity and the tourniquet was inflated to 300 mmHg. A standard anterior incision was made through the previous surgical incision. The incision was carried down through subcutaneous tissue. Identification of the patella tendon was then identified and it was avulsed off the tibial tubercle. Intraoperative cultures were obtained. There were no obvious signs of infection. After this had been performed, pulsatile lavage was used to irrigate the joint and the wound. After this had been performed, attention was then turned the tibial tubercle. A [employer] 1.8 Q-FIX anchor was placed x3 starting medially and working laterally. After this had been performed, 1 limb from each Q-FIX anchor was passed up and down the patella tendon in a Krackow locking fashion. The remaining limb on each anchor was placed in the edge of the tendon distally. They were then tied sequentially. There appeared be good repair. The was an oversewn on the medial retinaculum with #1 Vicryl. Gentle flexion was performed and appeared to be good repair. After this was performed, the wound was copiously irrigated once again. A 2-0 Vicryl then used for subcutaneous tissue, followed by skin franklin. Quarter percent Marcaine with epinephrine was injected locally. Adaptic, 4x4s, Webril, Cale wrap, and a hinged knee brace locked in full extension was placed. The patient tolerated the procedure well, no complications, transferred to the recovery room in stable condition. cc: Reggie Carroll MD
[2019-02-28] MEDS: NORCO-7.5 PO PRN (18:51)
[2019-02-28] MEDS ORDERED: HUMULIN 70/30 SUBQ SCH ×2 (21:00→22:42)
[2019-02-28] MEDS: KEFZOL 1 GM/D5W 1 GM/50 ML IVPB IV SCH (21:53)
[2019-02-28] MEDS: ZYLOPRIM PO SCH (21:54)
[2019-02-28] MEDS: NEURONTIN PO SCH (21:54)
[2019-02-28] MEDS: PEPCID PO SCH (21:54)
[2019-02-28] MEDS: TYLENOL PO SCH (21:55)
[2019-02-28] MEDS: ZOCOR PO SCH (21:55)
[2019-03-01] MEDS ORDERED: ULTRAM PO PRN (00:17)
[2019-03-01] MEDS: COLACE PO SCH ×5 (00:26→21:46)
[2019-03-01 01:25] LABS: URINE SOURCE CLEAN CATCH
[2019-03-01 01:31] LABS: BILIRUBIN URINE NEGATIVE (NEGATIVE); BLOOD URINE SMALL (NEGATIVE); COLOR ORANGE; GLUCOSE URINE NEGATIVE (NEGATIVE); KETONE URINE NEGATIVE (NEGATIVE); LEUKOCYTES URINE LARGE (NEGATIVE); NITRITE URINE POSITIVE (NEGATIVE); PROTEIN URINE 30 mg/dL (NEGATIVE); SP GRAVITY URINE 1.006; TURBIDITY URINE TURBID (CLEAR); UROBILINOGEN URINE NORMAL (NORMAL)
[2019-03-01 01:40] LABS: UR EPITHELIAL CELLS <10 /HPF (<10); URINE BACTERIA NEGATIVE /HPF; URINE RBC <10 /HPF (<10); URINE WBC TNTC /HPF (<10)
[2019-03-01 01:42] LABS: URINE CASTS NONE SEEN; URINE CRYSTALS NONE SEEN; URINE SMALL ROUND CELLS NONE SEEN; URINE YEAST NONE SEEN
[2019-03-01] MEDS: KEFZOL 1 GM/D5W 1 GM/50 ML IVPB IV SCH (05:30)
[2019-03-01] MEDS ORDERED: ROCEPHIN 1 GM in NS 50 ML IV ONE (06:01)
[2019-03-01] MEDS: NORCO-7.5 PO PRN ×2 (06:18→16:07)
[2019-03-01 06:21] LABS: HEMATOCRIT 32.1 % (37.0-47.0); HEMOGLOBIN 10.8 g/dL (12.0-16.0)
[2019-03-01 06:25] LABS: CALCIUM 8.6 mg/dL (8.8-10.2); CREATININE 1.3 mg/dL (0.5-0.9); POTASSIUM 5.2 mmol/L (3.5-5.1)
--- NOTE | 2019-03-01 07:07 | ORTHOPAEDICS PROGRESS NOTE ---
DATE: 03/01/2019 SUBJECTIVE: The patient is a pleasant, 79-year-old female, who is 1 day status post repair of right patella tendon. She is currently resting comfortably. The patient had difficulty voiding and did require straight cath. She had turbid urine. The patient reports that she was concerned that she had a urinary tract infection prior to admission. PHYSICAL EXAMINATION: The patient's right lower extremity dressing is intact. A locked hinged knee brace in full extension is in place. Her calf is soft. She has active dorsiflexion and plantar flexion. LABORATORY DATA: Her labs and cultures are pending. Her Gram stain was negative yesterday from her knee. IMPRESSION: 1. Status post right total knee repair of right patella tendon. 2. Urinary tract infection prior to admission. PLAN: At this point, will change her dressing. Will begin mobilization with Physical Therapy. Will see how she progresses. Will give her 1 dose of Rocephin, and await the urine culture results. Will discharge once she is mobilizing. cc: Reggie Carroll MD
[2019-03-01] MEDS: FERROUS SULFATE PO SCH (07:56)
[2019-03-01] MEDS: TYLENOL PO SCH ×3 (08:00→21:36)
[2019-03-01] MEDS: ZYLOPRIM PO SCH ×2 (08:01→21:45)
[2019-03-01] MEDS: OCUVITE LUTEIN & ZEAXANTHIN PO SCH (08:01)
[2019-03-01] MEDS: PRINIVIL PO SCH (08:01)
[2019-03-01] MEDS: XARELTO PO SCH (08:01)
[2019-03-01] MEDS: PEPCID PO SCH ×2 (08:01→21:45)
[2019-03-01] MEDS: TOPROL XL PO SCH (08:01)
[2019-03-01] MEDS: NEURONTIN PO SCH ×2 (08:01→21:45)
[2019-03-01] MEDS: PERIDEX MT SCH ×3 (08:01→21:47)
[2019-03-01] MEDS: NS 1,000 ML IV SCH ×3 (08:05→21:55)
[2019-03-01] MEDS: HUMULIN 70/30 SUBQ SCH (08:06)
[2019-03-01] MEDS: ZOCOR PO SCH (21:46)
[2019-03-02] MEDS: TYLENOL PO SCH ×2 (04:00→11:12)
[2019-03-02 06:48] LABS: HEMATOCRIT 33.4 % (37.0-47.0); HEMOGLOBIN 11.2 g/dL (12.0-16.0)
[2019-03-02] MEDS: COLACE PO SCH (10:22)
[2019-03-02] MEDS: XARELTO PO SCH (10:22)
[2019-03-02] MEDS: FERROUS SULFATE PO SCH (10:22)
[2019-03-02] MEDS: OCUVITE LUTEIN & ZEAXANTHIN PO SCH (10:23)
[2019-03-02] MEDS: HUMULIN 70/30 SUBQ SCH (10:23)
[2019-03-02] MEDS: NEURONTIN PO SCH (10:23)
[2019-03-02] MEDS: PEPCID PO SCH (10:24)
[2019-03-02] MEDS: PERIDEX MT SCH (10:24)
[2019-03-02] MEDS: TOPROL XL PO SCH (10:24)
[2019-03-02] MEDS: PRINIVIL PO SCH (10:24)
[2019-03-02] MEDS: ZYLOPRIM PO SCH (10:25)
[2019-03-02] MEDS: NS 1,000 ML IV SCH (10:33)
--- NOTE | 2019-03-02 10:53 | ORTHOPAEDICS PROGRESS NOTE ---
DATE: 03/02/2019 SUBJECTIVE: Patient is pleasant 79-year-old female who is 2 days status post repair of right patella tendon. Patient was slow to mobilize instability. She feels better this morning. She is sitting up in the chair. PHYSICAL EXAMINATION: The dressing is intact, knee [*]in place. Calf is soft. She has active dorsiflexion and plantar flexion. LABORATORY DATA: Her hemoglobin and hematocrit from yesterday was 10.8 and 32.1. IMPRESSION: Postoperative day #1 status post status post repair of right patella tendon.. PLAN: At this point, we will continue mobilization with partial weightbearing with knee immobilizer with a locked hinged knee brace in full extension. Senior Chemical Process Engineer has been consulted for discharge planning. cc: Reggie Carroll MD
[2019-03-02] MEDS: NORCO-7.5 PO PRN ×2 (11:11→15:50)
--- NOTE | 2019-03-02 15:31 | DISCHARGE SUMMARY ---
ADMISSION DATE: 02/28/2019 DISCHARGE DATE: 03/02/2019 ADMITTING DIAGNOSIS: Right patella tendon rupture status post revision total knee arthroplasty. POSTOPERATIVE DIAGNOSIS: Right patella tendon rupture status post revision total knee arthroplasty. PROCEDURE: Repair of right patellar tendon. BRIEF HISTORY: The patient is a 79-year-old female who is status revision right total knee arthroplasty approximately 5-1/2 weeks ago. Approximately 2 weeks ago, patient sustained a fall. Upon follow-up visit, she had and inability to actively fully extend her knee and lacked approximately 40 to 45 degrees extension. Given this, her clinical findings were consistent with recurrent rupture. Given the findings, recommendation to proceed with repair of right patellar tendon was offered. Risks and benefits of surgical procedure explained and all questions were answered. HOSPITAL COURSE AND TREATMENT: The patient was admitted and underwent repair the right patella tendon. Postoperatively the patient had a uneventful postoperative course. Did require straight catheterization and there was some suspicion for possible urinary tract infection, however, the urine culture was negative. Her intraoperative cultures from her knee was negative. By postoperative day number two, her hemoglobin and hematocrit stabilized to 11.2 and 33.4. Prior to discharge, patient is afebrile, tolerating a regular diet. Pain was well controlled on p.o. medication. She was slow to mobilize with Physical Therapy and it is felt the patient would benefit from inpatient rehabilitation. The patient and family are agreeable to this. DISCHARGE MEDICATIONS: 1. Ben Franklin 7.5 mg 1 p.o. q.4-6 h. p.r.n. pain, dispensed 30 with no refills. 2. Xarelto 10 mg p.o. daily. 3. For remaining medications, please see medication list. DISCHARGE INSTRUCTIONS: 1. Patient will be discharged for inpatient rehabilitation. 2. Consult physical therapy. 3. The patient to be partial weightbearing right lower extremity with her knee brace locked in full extension. The patient's knee to remain in full extension at all times. 4. Discontinue franklin in 11 days. 5. Follow up in the office in 3 weeks. cc: Reggie Carroll MD
[2019-03-02 15:42] VITALS: BP 133/50
== END 2019-03-02 18:01 ==
LOC: PAT 11:11 → 4N 11:11
PROVIDERS: ADMIT Orthopaedic Surgery Adult Reconstructive Orthopaedic Surgery; ATTEND Orthopaedic Surgery Adult Reconstructive Orthopaedic Surgery
CPT/HCPCS: 80048; 81001; 82948; 85014; 85018; 87070; 87075; 87088; 87205; 94761; 94799; 97110; 97116; 97162; 97530; A9270; J0690; J0696; J1170; J1885; J2270; J2405; J2550; J7030; J7120; XXXXX